=== PATIENT | male | born 1930 | race Caucasian/White ===

== ENCOUNTER 2017-09-15 11:23 | Emergency (ER) | payer MEDICARE ==
[~2017-09-15] VITALS: Ht 175.3 cm; Wt 80.0 kg
[~2017-09-15 11:23] MED LIST: ASPI81 PO; CARV3.125 PO; CLOP75 PO; HYDR-2768 PO; MOTR200T PO; NITR0.4S SL; OMEP20TA OR; PROS5TAB2 PO; SULF1TAB47 PO; TAB-TAB PO
[2017-09-15 11:24] VITALS: BP 201/77; PULSE 62; RESP 16; TEMP 98.2; O2SAT 98
[2017-09-15] MEDS ORDERED: CARV3.12 PO (11:34)
[2017-09-15] MEDS ORDERED: FINA5TAB2 PO (11:34)
[2017-09-15] MEDS ORDERED: OMEP20TA93 PO (11:34)
[2017-09-15] MEDS ORDERED: ASPI81CH6 CHEW (11:34)
[2017-09-15] MEDS ORDERED: CHOL1TAB29 PO (11:34)
[2017-09-15] MEDS ORDERED: IBUP200T47 PO (11:34)
[2017-09-15] MEDS ORDERED: MULTTAB67 PO (11:34)
[2017-09-15] MEDS ORDERED: LISI10TA3 PO (11:34)
[2017-09-15] MEDS ORDERED: ATOR20TA15 PO (11:34)
--- NOTE | 2017-09-15 12:23 | RADRPT ---
EXAM DATE/TIME: 09/15/2017 12:01 [place] COMPARISON: No previous studies available for comparison. INDICATIONS : Abdomen pain MEDICAL HISTORY : Constipation SURGICAL HISTORY : Appendectomy. Inguinal hernia repair. ENCOUNTER: Initial ACUITY: 2 days PAIN SCORE: 8/10 LOCATION: Abdomen FINDINGS: A single erect view of the abdomen demonstrates the lower lungs to be clear. No evidence of free int raperitoneal gas. The visualized bowel loops are unremarkable. CONCLUSION: Normal examination. Mild rightward lumbar scoliosis Jose Vaughn MD on September 15, 2017 at 12:20 Board Certified Radiologist. This report was verified electronically.
--- NOTE | 2017-09-15 12:26 | PD ---
HPI Chief Complaint: GI Complaint Time Seen by Provider: 11:53 Travel History International Travel<30 days: No Contact w/Intl Traveler<30days: No Traveled to known affect area: No History of Present Illness HPI 86-year-old male presents to the ED for evaluation 3 day history of constipation , rectal pain. He states that he is taking stool softeners and now has "anal leakage." He denies fevers, chills, nausea, vomiting, abdominal pain, hematochezia, melena, BRBPR. He states that he takes a stool softener daily. He denies previous problem like this before. PFSH Past Medical History Asthma: No Blood Disorders: No Heart Rhythm Problems: No Cancer: No Cardiovascular Problems: Yes High Cholesterol: Yes Chemotherapy: No Chest Pain: Yes Congestive Heart Failure: No COPD: No Diabetes: No Endocrine: No Glaucoma: No Genitourinary: Yes Hepatitis: No Hiatal Hernia: No Hypertension: No Immune Disorder: No Medical other: Yes (hx of prostate disease) Musculoskeletal: Yes Neurologic: No Psychiatric: No Reproductive: No Respiratory: No Radiation Therapy: No Sleep Apnea: No Thyroid Disease: No Influenza Vaccination: Yes Past Surgical History Abdominal Surgery: Yes (x3 hernia repair,appendectomy) Appendectomy: Yes Coronary Stent: Yes Eye Surgery: Yes (left eye cataract removal) Genitourinary Surgery: Yes (turp) Pacemaker: No Tonsillectomy: Yes Social History Alcohol Use: No Tobacco Use: No Substance Use: No Allergies-Medications (Allergen,Severity, Reaction): Coded Allergies: No Known Allergies (Verified Adverse Reaction, Unknown, 09/15/17) Reported Meds & Prescriptions Reported Meds & Active Scripts Active Golytely 236 gm (Polyethylene Glycol/Electrolytes) 4,000 Ml Soln 4,000 Ml PO ONCE Drink 1 ounce of GoLYTELY every 10-15 minutes until a stool is produced. STOP taking GoLYTELY once the stool is produced. Reported Ibuprofen 200 Mg Tab 200 Mg PO HS Lisinopril 10 Mg Tab 10 Mg PO DAILY Finasteride 5 Mg Tab 5 Mg PO DAILY Do not crush. Atorvastatin (Atorvastatin Calcium) 20 Mg Tab 20 Mg PO HS Vitamin D3 Super Strength (Cholecalciferol) 2,000 Unit Tab 2,000 Units PO DAILY Multiple Vitamin 1 Tab 1 Tab PO DAILY Omeprazole 20 Mg Tab 20 Mg PO DAILY Aspirin Low Dose (Aspirin) 81 Mg Chew 81 Mg CHEW DAILY Carvedilol 3.125 Mg Tab 3.125 Mg PO BID Review of Systems Except as stated in HPI: all other systems reviewed are Neg Physical Exam Narrative GENERAL: Well-nourished, well-developed, ill-appearing white male, pacing the room in no acute distress. SKIN: Focused skin assessment warm/dry. HEAD: Normocephalic. EYES: No scleral icterus. No injection or drainage. NECK: Supple, trachea midline. No JVD or lymphadenopathy. CARDIOVASCULAR: Regular rate and rhythm without murmurs, gallops, or rubs. RESPIRATORY: Breath sounds equal bilaterally. No accessory muscle use. GASTROINTESTINAL: Abdomen soft, non-tender, nondistended. Active bowel sounds. RECTAL EXAM: No masses or tenderness, stool is brown. Hard stool ball in the rectal vault. Guaiac negative. MUSCULOSKELETAL: No cyanosis, or edema. BACK: Nontender without obvious deformity. No CVA tenderness. Data Data Last Documented VS Vital Signs Date Time Temp Pulse Resp B/P (MAP) Pulse Ox O2 Delivery O2 Flow Rate FiO2 09/15/17 13:10 09/15/17 11:24 98.2 62 16 98 Orders Orders Abdomen, Upright Only (09/15/17 11:53) Ed Discharge Order (09/15/17 12:29) MDM Medical Decision Making Medical Screen Exam Complete: Yes Emergency Medical Condition: Yes Differential Diagnosis Constipation versus fecal impaction versus hemorrhoids versus prolapse versus other Narrative Course 86-year-old male presents to the ED for evaluation 3 day history of constipation , rectal pain. He states that he is taking stool softeners and now has "anal leakage." He denies fevers, chills, nausea, vomiting, abdominal pain, hematochezia, melena, BRBPR. Vitals reviewed. Abdominal exam completely benign. Patient has a large stool ball in the rectal vault. This was digitally disimpacted. Patient reports improvement of his rectal pain immediately after procedure. He is prescribed GoLYTELY, a few ounces every 10- 15 minutes until a bowel movement is produced, stopp taking after bowel movement is produced, follow up with the primary care provider. He indicated understanding of the instructions. He is agreeable with care plan. He is stable and discharged home. Diagnosis Primary Impression: Fecal impaction in rectum Referrals: Primary Care Physician Patient Instructions: Fecal Impaction (ED), General Instructions Additional Instructions: Rest, hydrate. Take GoLYTELY as prescribed until a stool is produced. Follow-up with your primary care provider. Return to the ED for any urgent or emergent medical condition. Med/Other Pt SpecificInfo: Prescription(s) given Scripts Peg-Electrolytes (Golytely 236 gm) 4,000 Ml Soln 4000 ML PO ONCE for Bowel Cleanser, #1 CONTAINER 0 Refills Drink 1 ounce of GoLYTELY every 10-15 minutes until a stool is produced. STOP taking GoLYTELY once the stool is produced. Prov: Rivas Gale MD 09/15/17 Disposition: 01 DISCHARGE HOME Condition: Stable Brittney Holliday Sep 15, 2017 12:26
[2017-09-15] MEDS ORDERED: COLY4000S PO (12:27)
== END 2017-09-15 13:40 | disposition home or self-care (01) ==
LOC: NEPD 11:23
DX: K56.41 Fecal impaction (principal); E78.00 Pure hypercholesterolemia, unspecified; M41.9 Scoliosis, unspecified; Z79.82 Long term (current) use of aspirin; Z79.899 Other long term (current) drug therapy
CPT/HCPCS: 74000; 99284

== ENCOUNTER 2018-05-16 09:31 | Observation (INO) ==
--- NOTE | 2018-05-16 10:12 | XR ---
EXAM DATE: 05/16/2018 10:03 AM EDT AGE/SEX: 87 years / Male INDICATIONS: Chest pain. Patient states he has chest pressure. CLINICAL DATA: This is the patient's initial encounter. Patient reports that signs and symptoms have been present for 2 days and indicates a pain score of 0/10. MEDICAL/SURGICAL HISTORY: None. . Appendectomy. Inguinal hernia repair. COMPARISON: [facility] – [place], CHEST SINGLE AP, 12/29/2010. . FINDINGS: The examination demonstrates mild dilation of the aortic root similar to previous dated 12/29/2010. The lungs are clear. There are postsurgical changes within the left shoulder. There are degenerative changes within the sh oulders bilaterally. The bony structures are otherwise intact. CONCLUSION: Mild dilation of the ascending aorta similar to previous dated 12/29/2010. The lungs are clear. Electronically signed by: Terell Kilpatrick MD 05/16/2018 10:10 AM EDT
[2018-05-16 10:15] LABS: Baso % (Auto) 0.5 % (0.0-2.0); Eos # (Auto) 0.2 th/mm3 (0.0-0.4); Eos % (Auto) 3.6 % (0.0-4.0); Hematocrit 43.2 % (39.0-51.0); Hemoglobin 14.4 gm/dL (13.0-17.0); Lymph # (Auto) 1.5 th/mm3 (1.0-4.8); Lymph % (Auto) 23.6 % (9.0-44.0); Mean Corpuscular HGB Conc 33.3 % (32.0-36.0); Mean Corpuscular Hemoglobin 31.6 pg (27.0-34.0); Mean Corpuscular Volume 95.1 fL (80.0-100.0); Mean Platelet Volume 7.5 fL (7.0-11.0); Mono # (Auto) 0.9 th/mm3 (0.0-0.9); Mono % (Auto) 14.6 % (0.0-8.0); Neut # (Auto) 3.7 th/mm3 (1.8-7.7); Neut % (Auto) 57.7 % (16.0-70.0); Platelet Count 231 th/mm3 (150-450); Red Blood Count 4.55 mil/mm3 (4.50-5.90); Red Cell Distribution Width 12.8 % (11.6-17.2); White Blood Count 6.5 th/mm3 (4.0-11.0)
[2018-05-16 10:36] LABS: Anion Gap 4 meq/L (5-15); Blood Urea Nitrogen 25 mg/dL (7-18); Calcium 8.8 mg/dL (8.5-10.1); Carbon Dioxide 32.1 meq/L (21.0-32.0); Chloride 106 meq/L (98-107); Glomerular Filtration Rate 82 mL/min (>89); Glucose,Random 68 mg/dL (74-106); Potassium 4.5 meq/L (3.5-5.1); Sodium 142 meq/L (136-145)
[2018-05-16 10:37] LABS: Activated Partial Thrombo Time 25.1 sec (24.3-30.1); Prothrombin Time 10.5 sec (9.8-11.6)
[2018-05-16 10:40] LABS: Creatine Kinase 158 U/L (39-308)
[2018-05-16] MEDS ORDERED: Iohexol 350 MG/ML 50 ML Vial (for Cath Lab) IVCONTRAST ONE (13:16)
[2018-05-16] MEDS ORDERED: Iohexol 350 MG/ML 100 ML Vial (for Cath Lab) IVCONTRAST ONE (13:16)
[2018-05-16] MEDS ORDERED: Hypromellose 0.3% Opth Gel 10 GM Bottle EACH EYE PRN (14:50)
--- NOTE | 2018-05-16 15:06 | P.HPCA ---
History of Present Illness Service: Chest pain center Primary Care Physician: Omer Linn Chief Complaint: Chest pressure History of Present Illness: Very pleasant 87-year-old gentleman with a known history of coronary artery disease presents with chest pressure. In 2010 he had an episode of chest pain that led to catheterization which demonstrated a high-grade lesion in the LAD which was successfully stented by Dr. Madhavi Dee. At that time he had additional documented disease in the circumflex and the right coronary artery but these have been followed and treated medically. He has been followed by Dr. Qureshi [facility] and has had both nuclear and exercise stress test but none within the last year or so. 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 He is otherwise remarkably healthy and states that his blood pressure has been in good control. About 3 weeks ago after a in the family he experienced an episode of chest pressure which was midsternal about about 3 out of 10 lasting less than 5 minutes and relieved by 3 aspirin. This morning he awoke at about 3 AM with similar discomfort which was again relieved by 3 aspirin. He contacted his primary care physician who directed him to the emergency room. He states that this discomfort was very similar in character to the discomfort he had prior to his stent but not quite as severe. This was highly suggestive of recurrent nocturnal unstable angina. Review of Systems Review of systems is entirely unremarkable other than that presented the history and physical PMFSH - History History Provided By: Patient (Patient has) - Medical History Medical History: Medical History (Last Updated 05/16/18 @ 15:03 by Artemio Francis MD) Rotator cuff impingement syndrome of right shoulder (Acute) Rotator cuff impingement syndrome of left shoulder (Acute) GERD (gastroesophageal reflux disease) (Acute) BPH (benign prostatic hyperplasia) (Acute) Hypercholesteremia (Acute) Hypertension (Acute) - Surgical History Surgical History: Surgical History (Last Updated 05/16/18 @ 15:03 by Artemio Francis MD) H/O heart artery stent (Acute) History of cardiac catheterization (Acute) History of appendectomy (Acute) H/O hernia repair (Acute) - Tobacco History Second Hand Smoke Exposure: No Tobacco Use In Past 30 Days: No Smoking Status: Former smoker Tobacco Type: Cigarettes - Alcohol History How Often Do You Have a Drink Containing Alcohol: Never - Substance Use History Substance History: No History of Abuse - Travel History Recent Travel in the [place] Within the Last 8 Weeks: No Recent Travel Out of the Country Within the Last 8 Weeks: No - Immunization History Tetanus Immunization: Unsure Hx Influenza Vaccine This Season: Yes Medications and Allergies Active Medications: Active Medications Atorvastatin Calcium (Lipitor) 20 mg PO DAILY QUITA Carvedilol (Coreg) 3.125 mg PO BID QUITA Finasteride (Proscar) 5 mg PO DAILY QUITA Lisinopril (Prinivil) 10 mg PO DAILY QUITA Non-Formulary Medication (Dextran 70-Hypromellose [Artificial Tears (Pf)]) 1 drp EACH EYE BID PRN PRN Reason: Dry Eye(S) Non-Formulary Medication (Omeprazole [Omeprazole]) 20 mg PO DAILY QUITA Sodium Chloride (Ns Flush) 2 ml IV.FLUSH UNSCH PRN PRN Reason: FLUSH AFTER USING IV ACCESS Sodium Chloride (Ns Flush) 2 ml IV.FLUSH BID QUITA Sodium Chloride (Ns Flush) 2 ml IV.FLUSH PRN PRN PRN Reason: FLUSH AFTER USING IV ACCESS Allergies Allergy/AdvReac Type Severity Reaction Status Date / Time No Known Allergies Allergy Unverified 05/16/18 09:36 Home Medications Medication Instructions Recorded Confirmed Type aspirin 81 mg PO DAILY 05/16/18 05/16/18 History atorvastatin 20 mg PO DAILY 05/16/18 05/16/18 History carvedilol 3.125 mg PO BID 05/16/18 05/16/18 History cholecalciferol (vitamin D3) 2,000 unit PO DAILY 05/16/18 05/16/18 History [Vitamin D3] dextran 70-hypromellose 1 drp OPHTHALMIC (EYE) BID PRN 05/16/18 05/16/18 History [Artificial Tears (PF)] finasteride 5 mg PO DAILY 05/16/18 05/16/18 History lisinopril 10 mg PO DAILY 05/16/18 05/16/18 History omeprazole 20 mg PO DAILY 05/16/18 05/16/18 History Exam Vital signs: Vital Signs 05/16/18 09:33 05/16/18 09:43 05/16/18 09:48 Temperature 97.7 F Pulse Rate 56 L 60 53 L Respiratory Rate 16 18 18 Blood Pressure 184/77 H 202/81 H 202/81 H Pulse Oximetry 97 96 98 05/16/18 12:37 Temperature Pulse Rate 56 L Respiratory Rate 18 Blood Pressure 167/77 H Pulse Oximetry 98 Intake & Output 05/15/18 05/16/18 05/16/18 18:59 06:59 18:59 Weight 78.018 kg Narrative: Well-nourished well-developed male appearing less than stated 87 years Head normocephalic atraumatic Ears bilateral hearing aids Eyes PERRLA EOMI bilateral intraocular lenses sclera clear Mouth mucous membranes moist and well papillated partial plates in place no lesions Neck supple no JVD masses nodes or bruits Chest is clear to auscultation with no rales wheezes or rhonchi Cardiovascular regular sinus rhythm no gallops rubs or murmurs Abdomen soft nontender no guarding or rebound no hepatosplenomegaly Well-healed inguinal scars Extremities trace of edema but no clubbing or cyanosis. Well-healed scars left and right shoulder Neurologic cranial nerves are intact motor is 4+ to all extremities Results 05/17/18 06:06 05/17/18 06:06 Cardiac Enzymes 05/16/18 Range/Units 09:15 CK-MB (CK-2) 4.0 H (0.5-3.6) ng/mL Troponin I Less than 0.02 L (0.02-0.05) ng/mL Coagulation 05/16/18 Range/Units 09:15 PT 10.5 (9.8-11.6) sec APTT 25.1 (24.3-30.1) sec CBC 05/16/18 Range/Units 09:15 WBC 6.5 (4.0-11.0) th/mm3 RBC 4.55 (4.50-5.90) mil/mm3 Hgb 14.4 (13.0-17.0) gm/dL Hct 43.2 (39.0-51.0) % Plt Count 231 (150-450) th/mm3 Neut # (Auto) 3.7 (1.8-7.7) th/mm3 Lymph # (Auto) 1.5 (1.0-4.8) th/mm3 [place] # (Auto) 0.9 (0.0-0.9) th/mm3 Eos # (Auto) 0.2 (0.0-0.4) th/mm3 Baso # (Auto) 0.0 (0.0-0.2) th/mm3 Comprehensive Metabolic Panel 05/16/18 Range/Units 09:15 Sodium 142 (136-145) meq/L Potassium 4.5 (3.5-5.1) meq/L Chloride 106 (98-107) meq/L Carbon Dioxide 32.1 H (21.0-32.0) meq/L BUN 25 H (7-18) mg/dL Creatinine 0.88 (0.60-1.30) mg/dL Calcium 8.8 (8.5-10.1) mg/dL Intake and Output 05/15/18 05/16/18 05/16/18 22:59 06:59 14:59 Other: Weight 78.018 kg Patient Weight 05/17/18 06:59 Weight 78.018 kg Caprini VTE Risk Assessment Caprini VTE Risk Assessment: No/Low Risk (score <= 1) Caprini Risk Assessment Model: Point Value = 1 Point Value = 2 Point Value = 3 Point Value = 5 Age 41-60 Minor surgery BMI > 25 kg/m2 Swollen legs Varicose veins or History of unexplained or recurrent spontaneous Oral contraceptives or hormone replacement Sepsis (< 1 month) Serious lung disease, including pneumonia (< 1 month) Abnormal pulmonary function Acute myocardial infarction Congestive heart failure (< 1 month) History of inflammatory bowel disease Medical patient at bed rest Age 61-74 Arthroscopic surgery Major open surgery (> 45 min) Laparoscopic surgery (> 45 min) Malignancy Confined to bed (> 72 hours) Immobilizing plaster cast Central venous access Age >= 75 History of VTE Family history of VTE Factor V Leiden Prothrombin [id number] Lupus anticoagulant Anticardiolipin antibodies Elevated serum homocysteine Heparin-induced thrombocytopenia Other congenital or acquired thrombophilia Stroke (< 1 month) Elective arthroplasty Hip, pelvis, or leg fracture Acute spinal cord injury (< 1 month) Prophylaxis Regimen: Total Risk Factor Score Risk Level Prophylaxis Regimen 0-1 Low Early ambulation 2 Moderate Order ONE of the following: *Sequential Compression Device (SCD) *Heparin 5000 units SQ BID 3-4 Higher Order ONE of the following medications: *Heparin 5000 units SQ TID *Enoxaparin/Lovenox 40 mg SQ daily (WT < 150 kg, CrCl > 30 mL/min) *Enoxaparin/Lovenox 30 mg SQ daily (WT < 150 kg, CrCl > 10-29 mL/min) *Enoxaparin/Lovenox 30 mg SQ BID (WT < 150 kg, CrCl > 30 mL/min) AND/OR *Sequential Compression Device (SCD) 5 or more Highest Order ONE of the following medications: *Heparin 5000 units SQ TID (Preferred with Epidurals) *Enoxaparin/Lovenox 40 mg SQ daily (WT < 150 kg, CrCl > 30 mL/min) *Enoxaparin/Lovenox 30 mg SQ daily (WT < 150 kg, CrCl > 10-29 mL/min) *Enoxaparin/Lovenox 30 mg SQ BID (WT < 150 kg, CrCl > 30 mL/min) AND *Sequential Compression Device (SCD) Assessment and Plan - Plan Patient has known coronary artery disease and recurrent symptoms suggesting the same pattern that he experienced with previous. Discussion was carried out with Dr. garduno who is on-call for [facility] and with consensus we felt it most appropriate to move the patient directly for catheterization. Dr. garduno will see the patient while he is in the emergency room patient will be admitted to Dr. Mi pending cath documented ischemia - Attending Attestation I attest to the need for the evaluation and diagnostic testing obtained into the need for admission of the patient for further catheterization
[2018-05-16] MEDS ORDERED: Heparin 10,000 UNITS/10 ML Vial (for IV use) ONE (15:15)
[2018-05-16] MEDS ORDERED: Heparin/NS PF Inj 1,500 ML ONE (15:15)
[2018-05-16] MEDS ORDERED: fentaNYL Citrate Inj 100 MCG/2 ML Ampul ONE ×2 (15:32→16:54)
[2018-05-16 15:55] LABS: Creatine Kinase 157 U/L (39-308)
[2018-05-16] MEDS ORDERED: Nitroglycerin SL 400 MCG/ACT 4.9 GM Spray Bottle SL ONE (16:35)
--- NOTE | 2018-05-16 16:35 | MB ---
cc: Jose Schmidt MD DATE: 05/16/2018 INDICATION: Chest pain. HISTORY OF PRESENT ILLNESS: An 87-year-old gentleman with history of coronary artery disease with prior percutaneous intervention to the left anterior descending coronary artery, also has history of GERD, BPH, hyperlipidemia, and hypertension. He now presents with episodes of progressive exertional chest pain over the course of the last 3 weeks. He was initially going to be sent to the chest pain center with Dr. Francis, which documents suggestive symptoms for consideration of direct cardiac catheterization, given his unstable angina presentation. PAST MEDICAL HISTORY: GERD, BPH, hyperlipidemia, hypertension. SOCIAL HISTORY: Former tobacco user. Denies any drugs or alcohol. REVIEW OF SYSTEMS: A 12-point review of system was performed, and is negative unless otherwise noted in the history of present illness. MEDICATIONS: Atorvastatin, carvedilol, finasteride, lisinopril. FAMILY HISTORY: Denies any family history of early coronary disease, or sudden cardiac . PHYSICAL EXAMINATION: VITAL SIGNS: Pulse 58, blood pressure 131/63 mmHg. GENERAL: Alert and oriented x3, in no acute distress. HEENT: Shows pupils reactive to light and accommodation. Extraocular movements are intact. CARDIOVASCULAR: Regular rate and rhythm without murmurs, rubs, or gallops. ABDOMEN: Nontender, nondistended with good bowel sounds. No hepatosplenomegaly. EXTREMITIES: Show no clubbing, cyanosis or edema. Good peripheral pulses. NEUROLOGIC: Cranial nerves intact. Motor and sensory grossly intact. LABORATORY DATA: WBC 6.5, hemoglobin 14.4, platelet count is 231. INR is 1. Sodium 142, potassium 4.5, BUN 25, creatinine 0.88. Troponins negative x1. Electrocardiogram shows sinus rhythm. No ischemic changes. ASSESSMENT: 1. Unstable angina. 2. Hypertension. 3. Hyperlipidemia. 4. History of coronary artery disease. PLAN: The patient has rather suggestive exertional anginal symptoms with prior history of coronary artery disease consistent with acute coronary syndrome presentation. Discussed the case in detail with Dr. Francis, and we will plan to proceed directly with cardiac catheterization. The patient is currently n.p.o. and it is Saturday afternoon. Will see if we can coordinate this prior to the weekend. Will continue with guideline-directed medical therapy. Jsoe Schmidt MD NIALL/rh , 03:26 PM , 03:33 PM
[2018-05-16] MEDS ORDERED: Atropine Inj 1 MG/ML Vial IV.PUSH PRN (16:51)
[2018-05-16] MEDS ORDERED: Misc Info for Pharmacy OTHER STA (16:56)
--- NOTE | 2018-05-16 17:00 | CATHPROC ---
Patient Name: Chad Galloway Study #: [id number] Initial MD: Jose Schmidt Date of : 1930 Study Date: 05/16/2018 Cardiac Catheterization Report 05/16/2018 5:14:28 PM Financial #: [id number] 1 of 10 Patient Name: Chad Galloway Study #: [id number] Initial MD: Jose Schmidt Date of : 1930 Study Date: 8 Entire Case Report Patient Information Patient Name Chad Galloway Date of 1930 Age 87 years Financial # [id number] Gender M AlternateID Lab Number 5 Room Number E49A Height (in) 69.0 Height (cm) 175.3 BSA 1.94 Weight (lbs) 172.0 Weight (kg) 78.2 Patient Address/Phone Number Home Address [facility] Home Phone Number [phone] [phone] Study Information Study Number Admission Scheduled Start Study Start [id number] May 16 2018 2:05PM 05/16/2018 May 16 2018 3:12PM [place] Service Cardiac Catheterization Admit Source Facility Department Emergency department [facility] - Escalator Installer Physician and Clinical Staff Initial Jose Lorenzana Automation Operator Shravan Hope,RN Automation Operator Julio Powell,REZA Recorder Ilana Shahid,RT(R) ScrIrlanda Hinds RT(Rene) (BS) Procedures Performed Procedure Location (Site) Vessel Name Coronary Angiograms LCA Left Coronary Coronary Angiograms RCA Right Coronary Drug Eluting Inflatio RCA Mid Right Coronary IVUS RCA Right Coronary L Heart Cath Wire insertion Radial (right) Radial Art. 05/16/2018 5:14:28 PM Financial #: [id number] 2 of 10 Patient Name: Chad Galloway Study #: [id number] Initial MD: Jose Schmidt Date of : 1930 Study Date: 05/16/2018 Equipment Time Sanitary Engineer Description Size Mfg Part Number Used/Scraped TRANSDUCER, TRUWAVE [id number] 15:13 CARRILLO MAGALLON * Used W/STOCKCOCK *[id number] 16:13 [employer]ON SCIENT[employer] CATHETER, OPTICROSS IMAGING [id number] Used [id number] 16:13 [employer] WIRE, SAMURAI 190CM 190CM Used *[id number] *[id number] 15:13 [employer] Systems BLANKET,WARM AIR CCL * Used *[id number] 15:13 [employer] PACK, CCL CUSTOM * Used *[id number] 15:13 [employer] Systems SUPPORT, ARTERIAL ADULT 32811 *[id number] Used [id number] 15:21 MEDTRONIC JL 3.5 DXTERITY CATHETER FR 5 Used *[id number] 15:21 MEDTRONIC JR 5.0 DXTERITY CATHETER fr 5 [id number] Used [id number] 16:31 MEDTRONIC STENT, 3.0 30MM SAM 3.0 30MM Used *[id number] 16:30 Wordeo 30 RYANN INDEFLATOR Used *[id number] BAND, RADIAL COMPRESSION TR [id number] 16:36 [employer] MEDICAL 24CM Used SHORT 24 *[id number] SHEATH, FR6 RADIAL PRELUDE 15:13 Wordeo FR 6 [id number] Used EASE 11CM [id number] 15:13 [employer] WIRE, EXCHANGE 260CM 3MMJ 260CM Used *[id number] 15:13 NAMIC MANIFOLD, 4 PORT * Used *[id number] 15:13 NYCOMED OMNIPAQUE, 350 MG, 150ML 150ML [id number] Used Equipment Model, Serial, Lot Number and Expiration Data Description Model Number Serial Number Lot Number Expiration Date BAND, RADIAL COMPRESSION TR [id number] 01-27-2021 SHORT 24 JR 5.0 DXTERITY CATHETER [id number] 05-21-2020 STENT, 3.0 30MM SAM [id number] 12-17-2019 WIRE, SAMURAI 190CM [id number] 03-18-2020 Insurance Information Insurance Payor Medicare Third Republican Third Republican Number [facility] HMO [id number] 05/16/2018 5:14:28 PM Financial #: [id number] 3 of 10 Patient Name: Chad Galloway Study #: [id number] Initial MD: Jose Schmidt Date of : 1930 Study Date: 05/16/20 18 History: Current Medications Medication Dosage/Unit Route Frequency Last Date/Time Taken ASA Statins (any) CARVEDILOL LISINOPRIL History: Allergies Allergy Reaction No Known Allergies History: Risk Factors Family History of Hypertension Dyslipidemia Previous MD Previous Heart Failure Premature CAD Yes Yes Yes No No Prior Valve Prior PCI Prior PCIDate Prior CABG Surgery No Yes 09/30/2010 No Cerebrovascular Peripheral Artery Chronic Lung On Dialysis Diabetes Disease Disease Disease No No No No No History: Other Current Smoker Method Quit Packs a Day Years Used Pack Years No Cigarettes 60 Years Ago 1 10 10 Labs Hgb (g/dl) Hct (%) WBC (l/cumm) Platelets (thousands) 11.60-17.00 35.00-51.00 4.00-11.00 150.00-450.00 14.3 43.2 6.5 231 Glucose (mg/dl) BUN (mg/dl) Creatinine (mg/dl) BUN:Creatinine (1:x) 74.00-106.00 7.00-18.00 0.50-1.30 10.00-20.00 68 25 0.8 31.3 Na (meq/l) K (meq/l) 136.00-145.00 3.50-5.10 142 4.5 INR (PTT:PT) 0.90-1.10 1 Troponin I (ng/ml) CPK (u/l) CPK-MB (ng/ML) 0.02-0.05 26.00-308.00 0.50-3.60 0.02 158 4.0 05/16/2018 5:14:28 PM Financial #: [id number] 4 of 10 Patient Name: Chad Galloway Study #: [id number] Initial MD: Jose Schmidt Date of : 1930 Study Date: 05/16/2018 Medication Medication Total Dose (Bolus/Oral) Medication Total Dosage/Unit 1% XYLOCAINE 5 mL ANGIOMAX BOLUS 12 mL FENTANYL 100 mcg HEPARIN 6000 units NITROGLYCERIN S/L 1.2 mg NTG (IC) 200 mcg PLAVIX 600 mg VERSED 1 mg 05/16/2018 5:14:28 PM Financial #: [id number] 5 of 10 Patient Name: Chad Galloway Study #: [id number] Initial MD: Jose Schmidt Date of : 1930 Study Date: 2017 Medications (Bolus/Oral) Medication Time Given Dosage/Unit Administered By Reason VERSED 05/16/2018 3:56:29 PM 1 mg Herminia, Shravan 1 mg VERSED given in lab by Shravan Hope RN in Left Antecubital via Peripheral IV. Ordered by Jose Schmidt. FENTANYL 05/16/2018 3:57:38 PM 50 mcg Herminia, Shravan 50 mcg FENTANYL given in lab by Shravan Hope RN in Left Antecubital via Peripheral IV. Ordered by Jose Wen. 1% XYLOCAINE 05/16/2018 4:00:02 PM 5 mL Jose Schmidt 5 mL 1% XYLOCAINE given in lab by Jose Schmidt in Right Radial via Subcutaneous. NTG (IC) 05/16/2018 4:01:03 PM 200 mcg Jose Schmidt 200 mcg NTG (IC) given in lab by Jose Schmidt in Right Radial via Intra-arterial. HEPARIN 05/16/2018 4:01:38 PM 4000 units Irlanda Hamilton 4000 units HEPARIN given in lab by Irlanda Hamilton RT(R) (BS) in Left Antecubital via Peripheral IV . Ordered by Jose Schmidt. HEPARIN 05/16/2018 4:14:18 PM 2000 units Irlanda Hamilton 2000 units HEPARIN given in lab by Irlanda Hamilton RT(R) (BS) in Left Antecubital via Peripheral IV . Ordered by Jose Schmidt. ANGIOMAX BOLUS 05/16/2018 4:31:05 PM 12 mL Shravan Hope 12 mL ANGIOMAX BOLUS given in lab by Shravan Hope RN in Left Antecubital via Peripheral IV. Ordered by Jose Schmidt. NITROGLYCERIN S/L 05/16/2018 4:35:37 PM 0.4 mg Herminia, Shravan 0.4 mg NITROGLYCERIN S/L given in lab by Shravan Hope RN via Sublingual. Ordered by Jose Schmidt. NITROGLYCERIN S/L 05/16/2018 4:45:00 PM 0.4 mg hSravan Hope As per physician s verbal order 0.4 mg NITROGLYCERIN S/L given in lab by Shravan Hope RN via Sublingual. Ordered by Jose Schmidt. Reason: As per physicians verbal order. PLAVIX 05/16/2018 4:50:41 PM 600 mg Shravan Hope 600 mg PLAVIX given in lab by Shravan Hope RN via Oral. Ordered by Jose Schmidt. NITROGLYCERIN S/L 05/16/2018 4:55:00 PM 0.4 mg Shravan Hope As per physician s verbal order 0.4 mg NITROGLYCERIN S/L given in lab by Shravan Hope RN via Sublingual. Ordered by Jose Schmidt. Reason: As per physicians verbal order. FENTANYL 05/16/2018 4:55:44 PM 50 mcg Shravan Hope 50 mcg FENTANYL given in lab by Shravan Hope RN in Left Antecubital via Peripheral IV. Ordered by Jose Wen. Medication (Drip) Medication Time Given Dosage/Unit Concentration/Unit Diluent (ml) Soluti on ANGIOMAX DRIP 05/16/2018 4:33:16 PM 1.79 mg/kg/hr 250 mg 50 NaCl .9 1.79 mg/kg/hr ANGIOMAX DRIP given in lab by Shravan Hope RN in Left Antecubital via Peripheral IV. P ump/Drip Flow = 28 ml/hr using NaCl .9 with a concentration of 250 mg in 50 ml. Ordered by Jose Schmidt. IV Solutions 05/16/2018 3:35:20 PM 50 mL (IV) NaCl .9 IV Solutions given in lab by Julio Powell RN in Left Antecubital via Peripheral IV. Pump/Drip Flow using NaCl .9. 05/16/2018 5:14:28 PM Financial #: [id number] 6 of 10 Patient Name: Chad Galloway Study #: [id number] Initial MD: Jose Schmidt Date of : 1930 Study Date: 8 Vitals Summary Pain Time HR NIBP SpO2 Resp Temp EtCO2 Apnea Luis Bobby Comment Level 15:38:32 59 202/91 98.0 15:39:31 58 121/101 99.0 15:50:37 56 201/94 97.0 15:53:35 57 206/88 98.0 15:58:48 56 175/76 100.0 16:02:46 62 145/75 93.0 16:07:45 68 137/71 92.0 10 0 2 16:12:42 67 149/77 96.0 16:17:49 60 154/67 91.0 16:22:48 52 161/73 95.0 16:27:51 53 155/72 91.0 16:33:31 56 189/88 94.0 16:37:55 54 196/80 97.0 16:42:59 56 181/82 97.0 16:47:47 56 158/85 96.0 16:53:42 56 185/80 97.0 Luis Score Summary Time Activity Resp Circ LOC Color Total Score 16:07:45 2 2 2 2 2 10 Luis Score Definition Table Activity - 0 Activity - 1 Activity - 2 No Movement to Command Weak Hand Grasp Lift Head, Good Hand Grasp Respiration - 0 Respiration - 1 Respiration - 2 Apneic or Obstructed Shallow Breath, Airway Adjunct Deep Breath, Cough Freely Circulation - 0 Circulation - 1 Circulation - 2 B/P > 50% Admission B/P B/P > 20-50% Admission B/P B/P Stable X3 Level of Consciousness - 0 Level of Consciousness - 1 Level of Consciousness - 2 Not Responding Arousable On Calling Awake and Aware Color - 0 Color- 1 Color - 2 Cyanotic Lips, Nailbed, Skin Pale, Dusky [place] Or Normal Chronological Log Time Study Chronological Log 15:31:03 Patient arrived via Bed. 15:31:03 Patient Name, D.O.B, / Armband Verified By R.NBg 05/16/2018 5:14:28 PM Financial #: [id number] Patient Name: Chad Galloway Study #: [id number] Initial MD: Jose Schmidt Date of : 1930 Study Date: 05/16/2018 15:31:04 Consent signed by the physician and the patient and verified by the Escalator Installer staff. 15:31:32 Allens test performed on the right radial and ulnar artery. 15:31:35 Patient has been NPO for More than 6Hrs. 15:31:36 Skin Breakdown- none per pt 15::39 Patient Warmer Placed on the Table. 15::40 Adams Prominences Protected 15::40 A # 18 IV was noted in the Wrist (right). Grade = 0 15:31:59 History and physical on the chart or being dictated. 15:34:51 A # 20 IV was noted in the Antecubital (left). Grade = 0. Placed in lab by Zo Bermudez RN 15:35:20 IV Solutions given in lab by Julio Powell RN in Left Antecubital via Peripheral IV. Pump /Drip Flow using NaCl .9. 15:38:03 Reference ECG taken 15:38:32 HR=59 bpm, BJJL=467/91 mmhg, SpO2=98.0 % Vitals capture started with the following parameters, Patient=Adult, Interval=5 min, Initial Pr lzblvm=445 mmHg, 15:39:08 Deflation Rate=5 mmHg, Cuff placed on Left Leg 15:39:31 HR=58 bpm, JPRE=596/101 mmhg, SpO2=99.0 % 15:43:24 Right Radial and groin(s) prepped with 2% chlorhexidine, and draped after a 3 min. waiting time. 15::39 MD paged 15:43:56 MD responded Vitals capture started with the following parameters, Patient=Adult, Interval=5 min, Initial Pr fldlml=743 mmHg, 15:47:51 Deflation Rate=5 mmHg, Cuff placed on Left Arm 15:47:59 Pressure channel 1 zeroed. Time Out. Correct patient, correct procedure, correct physician, labs, allergies, and equipment verified with laborer cheesemaking 15:48:34 team present. Fire risk assesment completed (see hard stop sheet for coding). Time Out Conc urred by MD and individual staff in procedure. 15:50:37 HR=56 bpm, NAYH=381/94 mmhg, SpO2=97.0 % 15:51:45 Vitals capture stopped. Vitals capture started with the following parameters, Patient=Adult, Interval=5 min, Initial Pr omsnck=965 mmHg, 15:52:00 Deflation Rate=5 mmHg, Cuff placed on Left Arm 15:53:35 HR=57 bpm, XCAS=230/88 mmhg, SpO2=98.0 % 15:56:29 1 mg VERSED given in lab by Shravan Hope RN in Left Antecubital via Peripheral IV. Ordered by Jose Schmidt. 15:57:38 50 mcg FENTANYL given in lab by Shravan Hope RN in Left Antecubital via Peripheral IV. Ord ered by Jose Schmidt. 15:58:48 HR=56 bpm, MVMH=793/76 mmhg, CwS8=153.0 % 16:00:00 Case Start 16:00:02 5 mL 1% XYLOCAINE given in lab by Jose Schmidt in Right Radial via Subcutaneous. 16:00:45 Access site was Right Radial Artery . A SHEATH, FR6 RADIAL PRELUDE EASE 11CM FR 6 was advanced into the Radial (right) using the Perc utaneous 16::52 technique. 16:01:03 200 mcg NTG (IC) given in lab by Jose Schmidt in Right Radial via Intra-arterial. 4000 units HEPARIN given in lab by Irlanda Hamilton RT(Rene) (BS) in Left Antecubital via Periphe ral IV. Ordered by 16:01:38 Jose Schmidt. A JR 5.0 DXTERITY CATHETER fr 5 was advanced over a wire. OMNIPAQUE, 350 MG, 150ML 150ML was us ed for ::52 injections. 05/16/2018 5:14:28 PM Financial #: [id number] 8 of 10 Patient Name: Chad Galloway Study #: [id number] Initial MD: Jose Schmidt Date of : 1930 Study Date: 05/16/2018 16:02:46 HR=62 bpm, QXNN=389/75 mmhg, SpO2=93.0 % Recorded Pressure: Ao, HR=63, Condition=Condition 1 16:03:17 (Aorta) Ao 133/65/94 16:04:36 The RCA was injected and visualized at various angles. OMNIPAQUE, 350 MG, 150ML 150ML used . After removing the current catheter a JL 3.5 DXTERITY CATHETER FR 5 was advanced over a WIRE, E XCHANGE 260CM 16:05:41 3MMJ 260CM. 16:07:02 The LCA was injected and visualized at various angles. OMNIPAQUE, 350 MG, 150ML 150ML used . 16:07:45 HR=68 bpm, IELW=627/71 mmhg, SpO2=92.0 %, Pain=0, Luis=10, Bobby=2 16:12:42 HR=67 bpm, NCGX=893/77 mmhg, SpO2=96.0 % After removing the current catheter a XBRCA .070 GUIDE CATHETER FR 6 was advanced over a WIRE, EXCHANGE 16:12:55 260CM 3MMJ 260CM. 2000 units HEPARIN given in lab by Irlanda Hamilton, RT(R) (BS) in Left Antecubital via Periphe ral IV. Ordered by 16:14:18 Jose Schmidt. 16:14:58 A WIRE, SAMURAI 190CM 190CM was inserted via Radial (right). 16:17:49 HR=60 bpm, HEVZ=467/67 mmhg, SpO2=91.0 % 16:20:48 An CATHETER, OPTICROSS IMAGING was advanced through the lesion. Images saved onto IVUS hard drive 16:22:33 IVUS in progress using CATHETER, OPTICROSS IMAGING Mean Luminal Area measured 3.29 16:22:48 HR=52 bpm, SCQF=982/73 mmhg, SpO2=95 % 16:24:18 IVUS catheter removed 16:27:51 HR=53 bpm, TKDK=402/72 mmhg, SpO2=91.0 % 12 mL ANGIOMAX BOLUS given in lab by Shravan Hope RN in Left Antecubital via Peripheral IV. Or dered by Brayan, 16:31:05 Jose. A STENT, 3.0 30MM SAM 3.0 30MM was advanced through a XBRCA .070 GUIDE CATHETER FR 6 over a WI RE, 16:32:11 SAMURAI 190CM 190CM. A STENT, 3.0 30MM SAM 3.0 30MM was deployed using a 30 RYANN INDEFLATOR at 16 atmospheres for 15 seconds in 16:32:18 the RCA Mid. 1.79 mg/kg/hr ANGIOMAX DRIP given in lab by Shravan Hope RN in Left Antecubital via Peripheral IV. Pump/Drip Flow 16:33:16 = 28 ml/hr using NaCl .9 with a concentration of 250 mg in 50 ml. Ordered by Jose Schmidt. 16:33:31 HR=56 bpm, RYXL=511/88 mmhg, SpO2=94.0 % 16:34:08 Delivery device removed 16:34:34 Wire removed 16:34:36 Catheter was removed 16:34:51 Case End (Physician broke scrub) 16:35:37 0.4 mg NITROGLYCERIN S/L given in lab by Shravan Hope RN via Sublingual. Ordered by Jose Schmidt. 16:37:55 HR=54 bpm, IDQD=456/80 mmhg, SpO2=97.0 % 16:42:59 HR=56 bpm, BZRS=687/82 mmhg, SpO2=97.0 % Radial Compression Device Used. 12 mLs of air placed in BAND, RADIAL COMPRESSION TR SHORT 24 24 CM. Affected 16:43:14 hand 95 % O2 saturation. 16:43:46 No case complications noted. 16:43:47 Cine recording checked. 16:43:51 Bedside Report will be given. 16:43:51 Implantable Device card placed in patient's chart. 16:43:52 Report called to floor. 05/16/2018 5:14:28 PM Financial #: [id number] Patient Name: Chad Galloway Study #: [id number] Initial MD: Jose Schmidt Date of : 1930 Study Date: 05/16/2018 16:44:13 A Left Heart Cath was performed. 0.4 mg NITROGLYCERIN S/L given in lab by Shravan Hope RN via Sublingual. Ordered by St rubina Schmidt. Reason: As 16:45:00 per physicians verbal order. 16:47:47 HR=56 bpm, LKDP=047/85 mmhg, SpO2=96.0 % 16:50:41 600 mg PLAVIX given in lab by Shravan Hope RN via Oral. Ordered by Jose Schmidt. 16:50:50 Patient moved to stretcher 16:53:42 HR=56 bpm, OUGT=355/80 mmhg, SpO2=97.0 % 0.4 mg NITROGLYCERIN S/L given in lab by Shravan Hope RN via Sublingual. Ordered by St rubina Schmidt. Reason: As 16:55:00 per physicians verbal order. 16:55:44 50 mcg FENTANYL given in lab by Shravan Hope RN in Left Antecubital via Peripheral IV. Or dered by Jose Schmidt. 16:57:26 Vitals capture stopped. Recorded Pressures: Condition 1 Time Chamber Pressure Manual Override (*) 16:03:17 Ao 133/65/94 s/d/m Oxygen Values/Cardiac Output/Resistances: Condition 1 Oxygen Values O2 Consumption O2 Capacity 242.5 + 194.5 * = Manually Altered + = O2 Consumption is calculated using the formula 125 x BSA and should be considered a rough estimat e. End Study - Contrast Media Used In Study Contrast Total Opened (mL) Total Used (mL) Total Wasted (mL) Omnipaque 150 125 25 End Study - Maximum Contrast Load Max Contrast Load (mL) 488.6 End Study - Radiation Exposure Fluoro Time (minutes) 6.0 End Study - Patient Disposition Complications Transferred To Interventional Outcome No Telemetry Bed successful 05/16/2018 5:14:28 PM Financial #: [id number]
[2018-05-16] MEDS ORDERED: Temazepam 15 MG Capsule PO PRN (18:00)
[2018-05-16] MEDS ORDERED: Sodium Chlor 0.9% Inj 250 ML IV.SIG ONE (18:00)
--- NOTE | 2018-05-16 18:26 | MA ---
cc: Jose Schmidt MD DATE: 05/16/2018 INDICATION: Unstable angina. PROCEDURES PERFORMED: 1. Fluoroscopy with interpretation. 2. Coronary angiography. 3. Intravascular ultrasound of the right coronary artery. 4. Percutaneous coronary intervention with drug-eluting stent to the mid right coronary artery. METHOD: Risks, benefits and alternatives were discussed with the patient. The patient understood and consented to the procedure. The patient was brought into the catheterization lab, placed on the catheterization table. The right wrist was prepped and draped in sterile fashion. The right wrist was anesthetized with 2% lidocaine. The right radial artery was cannulated and a 6-Qatari 7 cm sheath was placed without difficulty. CORONARY ANGIOGRAPHY: 1. Left main coronary artery is widely patent. 2. Left anterior descending coronary has minor luminal irregularities. 3. Left circumflex has minor luminal irregularities. 4. Right coronary tortuous and has moderate calcium present to the proximal mid course. There are several areas of what appeared to be moderate stenosis and a hazy appearance, possibly consistent with unstable plaque. Distal posterior descending branch has mild luminal irregularities. It is a dominant vessel. INTRAVASCULAR ULTRASOUND: Intravascular ultrasound was performed of the right coronary artery, which did reveal greater than 75% stenosis in the mid segment of the right coronary artery with heavy eccentric calcium. PERCUTANEOUS CORONARY INTERVENTION: The coronary is selectively engaged with a 6-Qatari XP RCA guide catheter, a 0.014 inch Samurai wire was advanced down to the distal portion of the descending branch. A 3.0 x 30 mm RX Resolute drug-eluting stent was then deployed in the mid right coronary artery. Repeat angiography showed no residual stenosis, JESSIE 3 flow. CONCLUSIONS: 1. Severe mid right coronary stenosis. 2. Successful intravascular ultrasound followed by percutaneous coronary intervention with drug-eluting stent to the mid right coronary artery. PLAN: The patient will be monitored closely for any post-procedural complications. Hopefully, this will translate well to symptomatic improvement. We will anticipate possible discharge tomorrow morning. MD NIALL [place]/ct/ll , 05:02 PM , 05:10 PM
[2018-05-16 22:02] LABS: Creatine Kinase 105 U/L (39-308)
[2018-05-17 06:50] LABS: Anion Gap 9 meq/L (5-15); Blood Urea Nitrogen 18 mg/dL (7-18); Calcium 8.3 mg/dL (8.5-10.1); Carbon Dioxide 25.8 meq/L (21.0-32.0); Chloride 106 meq/L (98-107); Glomerular Filtration Rate Greater Than 89 mL/min (>89); Glucose,Random 90 mg/dL (74-106); Potassium 4.1 meq/L (3.5-5.1); Sodium 141 meq/L (136-145)
[2018-05-17] MEDS ORDERED: Isosorbide Mononitrate 30 MG ER 24HR Tablet (Imdur) PO SCH (07:00)
[2018-05-17 07:11] LABS: Baso % (Auto) 0.4 % (0.0-2.0); Eos # (Auto) 0.2 th/mm3 (0.0-0.4); Eos % (Auto) 2.3 % (0.0-4.0); Hemoglobin 14.2 gm/dL (13.0-17.0); Lymph # (Auto) 1.7 th/mm3 (1.0-4.8); Lymph % (Auto) 21.5 % (9.0-44.0); Mean Corpuscular HGB Conc 33.9 % (32.0-36.0); Mean Corpuscular Hemoglobin 31.9 pg (27.0-34.0); Mean Corpuscular Volume 94.1 fL (80.0-100.0); Mean Platelet Volume 7.7 fL (7.0-11.0); Mono # (Auto) 0.9 th/mm3 (0.0-0.9); Mono % (Auto) 11.9 % (0.0-8.0); Neut # (Auto) 5.1 th/mm3 (1.8-7.7); Neut % (Auto) 63.9 % (16.0-70.0); Platelet Count 210 th/mm3 (150-450); Red Blood Count 4.47 mil/mm3 (4.50-5.90); Red Cell Distribution Width 13.4 % (11.6-17.2)
[2018-05-17] MEDS ORDERED: Lisinopril 10 MG Tablet PO SCH (09:00)
[2018-05-17] MEDS ORDERED: Pantoprazole Sodium 20 MG DR Tablet PO SCH (09:00)
[2018-05-17] MEDS ORDERED: Finasteride 5 MG Tablet PO SCH (09:00)
[2018-05-17] MEDS ORDERED: Aspirin 325 MG Tablet PO SCH (09:00)
--- NOTE | 2018-05-17 09:43 | P.PNCA ---
Subjective Interval history: no complaints doing well Physical Exam Vital signs: Vital Signs 05/16/18 09:43 05/16/18 09:48 05/16/18 12:37 Temperature Pulse Rate 60 53 L 56 L Respiratory Rate 18 18 18 Blood Pressure 202/81 H 202/81 H 167/77 H Pulse Oximetry 96 98 98 05/16/18 15:02 05/16/18 18:00 05/16/18 20:00 Temperature 98.1 F Pulse Rate 58 L 48 L 59 L Respiratory Rate 18 16 Blood Pressure 131/63 164/84 H Pulse Oximetry 96 05/16/18 21:36 05/16/18 22:36 05/16/18 23:00 Temperature 97.9 F 98.4 F Pulse Rate 59 L 64 54 L Respiratory Rate 16 16 Blood Pressure 149/80 H 170/84 H Pulse Oximetry 96 98 05/16/18 23:36 05/17/18 00:00 05/17/18 01:00 Temperature 98.2 F Pulse Rate 64 51 L 52 L Respiratory Rate 16 16 Blood Pressure Pulse Oximetry 98 97 05/17/18 02:00 05/17/18 04:00 05/17/18 05:49 Temperature 98.2 F Pulse Rate 54 L 67 56 L Respiratory Rate 16 Blood Pressure 169/81 H Pulse Oximetry 97 05/17/18 05:51 05/17/18 06:21 05/17/18 08:43 Temperature Pulse Rate 68 64 Respiratory Rate Blood Pressure Pulse Oximetry 94 L Intake & Output 05/16/18 05/17/18 05/17/18 18:59 06:59 18:59 Intake Total 1260 / 1260 640 / 640 Output Total 700 / 700 Balance 1260 / 1260 -60 / -60 Weight 78.018 kg 78 kg Intake: IV 10 / 10 Heparin/NS PF Inj 1,500 ML @ 0 10 / 10 mls/hr .ROUTE .[facility] Rx#: [id number] Oral 250 / 250 640 / 640 Anesthesia Amount 1000 / 1000 Output: Urine 700 / 700 Other: # Voids 2 - Constitutional no acute distress - Routine HEENT Exam Eye: Present: EOMI, PERRL ENT: Present: mucous membranes moist - Routine Neck Exam Absent: JVD - Routine Respiratory Exam Present: CTA bilaterally - Routine Cardiovascular Exam Present: RRR. Absent: murmur - Routine Abdominal Exam Present: soft, normoactive bowel sounds - Routine Extremities Exam Absent: edema Assessment and Plan - Plan unstable angina - PCI GRUPO RCA. asa plavix bb statin isosorbide FU with dr. raman ok for DC home today
--- NOTE | 2018-05-17 10:19 | P.DS ---
<Naima Sotelo W - Last Filed: 05/17/18 12:20> Date of admission: 05/16/18 14:05 Primary care physician: Omer Linn Attending physician on discharge: Kervin Mi Anticipated date of discharge: 05/17/18 Brief History from admission: Very pleasant 87-year-old gentleman with a known history of coronary artery disease presents with chest pressure. In 2010 he had an episode of chest pain that led to catheterization which demonstrated a high-grade lesion in the LAD which was successfully stented by Dr. Madhavi Dee. At that time he had additional documented disease in the circumflex and the right coronary artery but these have been followed and treated medically. He has been followed by Dr. Qureshi [facility] and has had both nuclear and exercise stress test but none within the last year or so. 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 He is otherwise remarkably healthy and states that his blood pressure has been in good control. About 3 weeks ago after a in the family he experienced an episode of chest pressure which was midsternal about about 3 out of 10 lasting less than 5 minutes and relieved by 3 aspirin. This morning he awoke at about 3 AM with similar discomfort which was again relieved by 3 aspirin. He contacted his primary care physician who directed him to the emergency room. He states that this discomfort was very similar in character to the discomfort he had prior to his stent but not quite as severe. This was highly suggestive of recurrent nocturnal unstable angina. DS: Diagnosis - Discharge Diagnosis (1) Unstable angina Status: Acute DS: Medications - Discharge Medications Prescriptions: clopidogrel [Plavix] 75 mg PO DAILY 30 Days #30 tab isosorbide mononitrate 30 mg PO DAILY@0700 30 Days tab DS: Summary Hospital Course: Patient presented to the chest pain center on 05/16/2018 was found to have unstable angina and sent to cardiac Cloth [facility] with Dr. Schmidt where patient had PCI with drug-eluting stent to the RCA on 05/16/2018. Patient doing well cleared for discharge home for cardiology will continue patient on aspirin add Plavix, beta-gabriela, statin and also add isosorbide. Patient to follow-up with Dr. 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 as well as PCP - Time Spent with Patient Total time spent providing and/or coordinating discharge services: Greater than 30 minutes Exam Vital signs: Vital Signs 05/16/18 12:37 05/16/18 15:02 05/16/18 18:00 Temperature Pulse Rate 56 L 58 L 48 L Respiratory Rate 18 18 Blood Pressure 167/77 H 131/63 Pulse Oximetry 98 05/16/18 20:00 05/16/18 21:36 05/16/18 22:36 Temperature 98.1 F 97.9 F 98.4 F Pulse Rate 59 L 59 L 64 Respiratory Rate 16 16 16 Blood Pressure 164/84 H 149/80 H 170/84 H Pulse Oximetry 96 96 98 05/16/18 23:00 05/16/18 23:36 05/17/18 00:00 Temperature 98.2 F Pulse Rate 54 L 64 51 L Respiratory Rate 16 16 Blood Pressure Pulse Oximetry 98 97 05/17/18 01:00 05/17/18 02:00 05/17/18 04:00 Temperature 98.2 F Pulse Rate 52 L 54 L 67 Respiratory Rate 16 Blood Pressure 169/81 H Pulse Oximetry 97 05/17/18 05:49 05/17/18 05:51 05/17/18 06:21 Temperature Pulse Rate 56 L 68 64 Respiratory Rate Blood Pressure Pulse Oximetry 05/17/18 08:43 Temperature Pulse Rate Respiratory Rate Blood Pressure Pulse Oximetry 94 L Intake & Output 05/16/18 05/17/18 05/17/18 18:59 06:59 18:59 Intake Total 1260 / 1260 640 / 640 Output Total 700 / 700 Balance 1260 / 1260 -60 / -60 Weight 78.018 kg 78 kg Intake: IV 10 / 10 Heparin/NS PF Inj 1,500 ML @ 0 10 / 10 mls/hr .ROUTE .[facility] Rx#: [id number] Oral 250 / 250 640 / 640 Anesthesia Amount 1000 / 1000 Output: Urine 700 / 700 Other: # Voids 2 Narrative: GENERAL: This is a well-nourished, well-developed patient, in no apparent distress. CARDIOVASCULAR: Regular rate and rhythm RESPIRATORY: Clear to auscultation. Breath sounds equal bilaterally. GASTROINTESTINAL: Abdomen soft, non-tender, nondistended. Normal active bowel sounds MUSCULOSKELETAL: Extremities without clubbing, cyanosis, or edema. NEURO: Alert & Oriented x4 to person, place, time, situation. Moves all ext x4 Results Procedures completed during hospitalization: PCI GRUPO RCA with Dr. Schmidt 05/16/18 Labs on day of discharge: Labs from last 24 hours 05/17/18 05/17/18 05/16/18 06:06 06:06 21:24 WBC 8.0 RBC 4.47 L Hgb 14.2 Hct 42.0 MCV 94.1 MCH 31.9 MCHC 33.9 RDW 13.4 Plt Count 210 MPV 7.7 Neut % (Auto) 63.9 Lymph % (Auto) 21.5 [place] % (Auto) 11.9 H Eos % (Auto) 2.3 Baso % (Auto) 0.4 Neut # (Auto) 5.1 Lymph # (Auto) 1.7 [place] # (Auto) 0.9 Eos # (Auto) 0.2 Baso # (Auto) 0.0 WBC Differential . Differential Comment Auto diff final PT INR APTT Sodium 141 Potassium 4.1 Chloride 106 Carbon Dioxide 25.8 Anion Gap 9 BUN 18 Creatinine 0.71 Estimated GFR Greater than 89 Random Glucose 90 Calcium 8.3 L Total Creatine Kinase 105 CK-MB (CK-2) Troponin I Less than 0.02 L 05/16/18 05/16/18 05/16/18 14:55 09:15 09:15 WBC RBC Hgb Hct MCV MCH MCHC RDW Plt Count MPV Neut % (Auto) Lymph % (Auto) [place] % (Auto) Eos % (Auto) Baso % (Auto) Neut # (Auto) Lymph # (Auto) [place] # (Auto) Eos # (Auto) Baso # (Auto) WBC Differential Differential Comment PT 10.5 INR 1.0 APTT 25.1 Sodium 142 Potassium 4.5 Chloride 106 Carbon Dioxide 32.1 H Anion Gap 4 L BUN 25 H Creatinine 0.88 Estimated GFR 82 L Random Glucose 68 L Calcium 8.8 Total Creatine Kinase 157 158 CK-MB (CK-2) 4.0 H Troponin I Less than 0.02 L Less than 0.02 L - Impressions ITS Impressions Chest X-Ray 05/16/18 09:44 CONCLUSION: Mild dilation of the ascending aorta similar to previous dated 12/29/2010. The lungs are clear. <Kervin Mi B - Last Filed: 05/20/18 12:58> Date of admission: 05/16/18 14:05 Primary care physician: Omer Linn DS: Summary Hospital Course: Patient examined. Assessment and plan formulated with Naima Sotelo PA-C. I agree with the above. - Time Spent with Patient Total time spent providing and/or coordinating discharge services: Results - Impressions ITS Impressions Chest X-Ray 05/16/18 09:44 CONCLUSION: Mild dilation of the ascending aorta similar to previous dated 12/29/2010. The lungs are clear. Discharge Plan - Discharge Order Discharge Orders: Discharge Order (Routine); Ordered 05/17/18 Ordered By: Naima Sotelo Cardiology Clear for Discharge (Routine); Ordered 05/17/18 Ordered By: Jose Schmidt - Discharge Details Anticipated Discharge Date: 05/17/18 - Physicians Team Primary Care Provider: Omer Linn Attending Provider: Kervin Mi Other Providers: Jose Schmidt MD
--- NOTE | 2018-05-17 15:05 | ECG ---
Date Performed: 05/16/2018 Time Performed: 15:00:32 PTAGE: 87 years EKG: SINUS BRADYCARDIA WITH SINUS ARRHYTHMIA LEFT ANTERIOR FASCICULAR BLOCK ABNORMAL ECG PREVIOUS TRACING : 05/16/2018 09.43 Since previous tracing, no significant change noted DOCTOR: Gatito Cain Interpretating Date/Time 05/17/2018 15:04:30
--- NOTE | 2018-05-17 15:06 | ECG ---
Date Performed: 05/16/2018 Time Performed: 09:43:23 PTAGE: 87 years EKG: SINUS BRADYCARDIA LEFT ANTERIOR FASCICULAR BLOCK ABNORMAL ECG PREVIOUS TRACING : 12/29/2010 19.42 Since previous tracing, no significant change noted DOCTOR: Gatito Cain Interpretating Date/Time 05/17/2018 15:05:42
--- NOTE | 2018-06-20 08:25 | ED ---
HPI General Chief Complaint: Chest Pain Stated Complaint: Medical Time Seen by Provider: 05/16/18 09:43 History of Present Illness HPI narrative: This is a 87-year-old male with history of coronary disease, hypertension, hyperlipidemia, GERD, who presents today with complaints of chest pain. Patient states that it started 3 weeks ago. He states that they had an unfortunate in her family and he experienced an episode of chest pain then. He reports that it was relieved with aspirin. He states that early this morning, he had another episode that started about 3 AM. It woke him from his sleep. It again was relieved with aspirin. The patient reported that it was a 3 out of 10 on the pain scale both times. He states that it is similar to the pain that he had when he had his stent placed. There was no diaphoresis, shortness of breath. Complete Quality Measures for STEMI Alert Patients Related Data Home Medications Medication Instructions Recorded Confirmed aspirin 81 mg PO DAILY 05/16/18 05/16/18 atorvastatin 20 mg PO DAILY 05/16/18 05/16/18 carvedilol 3.125 mg PO BID 05/16/18 05/16/18 cholecalciferol (vitamin D3) 2,000 unit PO DAILY 05/16/18 05/16/18 [Vitamin D3] dextran 70-hypromellose 1 drp OPHTHALMIC (EYE) BID PRN 05/16/18 05/16/18 [Artificial Tears (PF)] finasteride 5 mg PO DAILY 05/16/18 05/16/18 lisinopril 10 mg PO DAILY 05/16/18 05/16/18 omeprazole 20 mg PO DAILY 05/16/18 05/16/18 Allergies Allergy/AdvReac Type Severity Reaction Status Date / Time No Known Allergies Allergy Unverified 05/16/18 09:36 Review of Systems ROS: all other systems reviewed are negative Constitutional Reports system reviewed and no additional complaints, except as docu Eyes Reports system reviewed and no additional complaints, except as docu ENT Reports as per HPI Cardiovascular Reports chest pain (As per HPI), Denies diaphoresis and Denies dyspnea Respiratory Denies cough, Denies pain on inspiration and Denies dyspnea Gastrointestinal Denies abdominal pain, Denies dyspepsia, Denies nausea and Denies vomiting Genitourinary Reports system reviewed and no additional complaints, except as docu Musculoskeletal Reports system reviewed and no additional complaints, except as docu Neurologic Reports system reviewed and no additional complaints, except [facility] Medical History Medical History Rotator cuff impingement syndrome of right shoulder (Acute) Rotator cuff impingement syndrome of left shoulder (Acute) GERD (gastroesophageal reflux disease) (Acute) BPH (benign prostatic hyperplasia) (Acute) Hypercholesteremia (Acute) Hypertension (Acute) Surgical History Surgical History H/O heart artery stent (Acute) History of cardiac catheterization (Acute) History of appendectomy (Acute) H/O hernia repair (Acute) Social History Social History Substance History: No History of Abuse Second Hand Smoke Exposure: No Smoking Status: Former smoker Tobacco Type: Cigarettes How Often Do You Have a Drink Containing Alcohol: Never Recent Travel in [facility] within the Last 8 Weeks: No Recent Out of Country Travel within the Last 8 Weeks: No Immunization History Tetanus Immunization: Unsure Hx Influenza Vaccine This Season: Yes Exam Narrative Exam Narrative: GENERAL: GENERAL: Well-developed well-nourished male in no acute respiratory distress. SKIN: Focused skin assessment warm/dry. HEAD: Atraumatic. Normocephalic. EYES: No scleral icterus. No injection or drainage. ENT: No nasal bleeding or discharge. Mucous membranes pink and moist. NECK: Trachea midline. No JVD. Supple. I do not appreciate any carotid bruits. CARDIOVASCULAR: Regular rate and rhythm. No murmur appreciated. RESPIRATORY: No accessory muscle use. Clear to auscultation. Breath sounds equal bilaterally. GASTROINTESTINAL: Abdomen soft, non-tender, nondistended. Hepatic and splenic margins not palpable. MUSCULOSKELETAL: No obvious deformities. No clubbing. No cyanosis. No edema. NEUROLOGICAL: Awake and alert. No obvious cranial nerve deficits. Motor grossly within normal limits. Normal speech. PSYCHIATRIC: Appropriate mood and affect; insight and judgment normal. SKIN: Focused skin assessment warm/dry. HEAD: Atraumatic. Normocephalic. EYES: Pupils equal and round. No scleral icterus. No injection or drainage. ENT: No nasal bleeding or discharge. Mucous membranes pink and moist. NECK: Trachea midline. No JVD. CARDIOVASCULAR: Regular rate and rhythm. No murmur appreciated. RESPIRATORY: No accessory muscle use. Clear to auscultation. Breath sounds equal bilaterally. GASTROINTESTINAL: Abdomen soft, non-tender, nondistended. Hepatic and splenic margins not palpable. MUSCULOSKELETAL: No obvious deformities. No clubbing. No cyanosis. No edema. NEUROLOGICAL: Awake and alert. No obvious cranial nerve deficits. Motor grossly within normal limits. Normal speech. Course Initial Documented Vital Signs Temperature 97.7 F 05/16/18 09:33 Pulse Rate 56 L 05/16/18 09:33 Respiratory Rate 16 05/16/18 09:33 Blood Pressure 184/77 H 05/16/18 09:33 Pulse Oximetry 97 05/16/18 09:33 Last Documented Vital Signs Temperature 97.6 F 05/17/18 08:00 Pulse Rate 63 05/17/18 11:00 Respiratory Rate 18 05/17/18 08:00 Blood Pressure 170/92 H 05/17/18 08:00 Pulse Oximetry 94 L 05/17/18 08:43 Medical Decision Making MDM Narrative Medical decision making narrative: 87-year-old male with history of coronary artery disease, hypertension, hyperlipidemia, gastroesophageal reflux disease, presents today with an episode of chest pain that woke him up this morning at 3 AM. Patient states it was relieved with nitro. The patient does have a history of coronary artery disease and has had a stent placed. He sees Dr. Lenny Qureshi as his scleroscope tester at [facility]. 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 Patient's EKG and cardiac enzymes are within normal limits. Given his story and risk factors and age, patient will be admitted for rule out therapy in the chest pain center. He is amenable to this plan. Medical Screen Exam Complete: Yes Emergency Medical Condition: Yes Differential Diagnosis Differential Diagnosis: ACS versus GERD versus metabolic derangement versus musculoskeletal pain Lab Data Result diagrams: 05/17/18 06:06 05/17/18 06:06 Lab Results 05/16/18 05/16/18 05/16/18 Range/Units 09:15 09:15 09:15 WBC 6.5 (4.0-11.0) th/mm3 RBC 4.55 (4.50-5.90) mil/mm3 Hgb 14.4 (13.0-17.0) gm/dL Hct 43.2 (39.0-51.0) % MCV 95.1 (80.0-100.0) fL MCH 31.6 (27.0-34.0) pg MCHC 33.3 (32.0-36.0) % RDW 12.8 (11.6-17.2) % Plt Count 231 (150-450) th/mm3 MPV 7.5 (7.0-11.0) fL Neut % (Auto) 57.7 (16.0-70.0) % Lymph % (Auto) 23.6 (9.0-44.0) % [place] % (Auto) 14.6 H (0.0-8.0) % Eos % (Auto) 3.6 (0.0-4.0) % Baso % (Auto) 0.5 (0.0-2.0) % Neut # (Auto) 3.7 (1.8-7.7) th/mm3 Lymph # (Auto) 1.5 (1.0-4.8) th/mm3 [place] # (Auto) 0.9 (0.0-0.9) th/mm3 Eos # (Auto) 0.2 (0.0-0.4) th/mm3 Baso # (Auto) 0.0 (0.0-0.2) th/mm3 WBC Differential . Differential Comment Auto diff final PT 10.5 (9.8-11.6) sec INR 1.0 Ratio APTT 25.1 (24.3-30.1) sec Sodium 142 (136-145) meq/L Potassium 4.5 (3.5-5.1) meq/L Chloride 106 (98-107) meq/L Carbon Dioxide 32.1 H (21.0-32.0) meq/L Anion Gap 4 L (5-15) meq/L BUN 25 H (7-18) mg/dL Creatinine 0.88 (0.60-1.30) mg/dL Estimated GFR 82 L (>89) mL/min Random Glucose 68 L (74-106) mg/dL Calcium 8.8 (8.5-10.1) mg/dL Total Creatine Kinase 158 (39-308) U/L CK-MB (CK-2) 4.0 H (0.5-3.6) ng/mL Troponin I Less than 0.02 L (0.02-0.05) ng/mL 05/16/18 05/16/18 05/17/18 Range/Units 14:55 21:24 06:06 WBC 8.0 (4.0-11.0) th/mm3 RBC 4.47 L (4.50-5.90) mil/mm3 Hgb 14.2 (13.0-17.0) gm/dL Hct 42.0 (39.0-51.0) % MCV 94.1 (80.0-100.0) fL MCH 31.9 (27.0-34.0) pg MCHC 33.9 (32.0-36.0) % RDW 13.4 (11.6-17.2) % Plt Count 210 (150-450) th/mm3 MPV 7.7 (7.0-11.0) fL Neut % (Auto) 63.9 (16.0-70.0) % Lymph % (Auto) 21.5 (9.0-44.0) % [place] % (Auto) 11.9 H (0.0-8.0) % Eos % (Auto) 2.3 (0.0-4.0) % Baso % (Auto) 0.4 (0.0-2.0) % Neut # (Auto) 5.1 (1.8-7.7) th/mm3 Lymph # (Auto) 1.7 (1.0-4.8) th/mm3 [place] # (Auto) 0.9 (0.0-0.9) th/mm3 Eos # (Auto) 0.2 (0.0-0.4) th/mm3 Baso # (Auto) 0.0 (0.0-0.2) th/mm3 WBC Differential . Differential Comment Auto diff final PT (9.8-11.6) sec INR Ratio APTT (24.3-30.1) sec Sodium (136-145) meq/L Potassium (3.5-5.1) meq/L Chloride (98-107) meq/L Carbon Dioxide (21.0-32.0) meq/L Anion Gap (5-15) meq/L BUN (7-18) mg/dL Creatinine (0.60-1.30) mg/dL Estimated GFR (>89) mL/min Random Glucose (74-106) mg/dL Calcium (8.5-10.1) mg/dL Total Creatine Kinase 157 105 (39-308) U/L CK-MB (CK-2) (0.5-3.6) ng/mL Troponin I Less than 0.02 L Less than 0.02 L (0.02-0.05) ng/mL 05/17/18 Range/Units 06:06 WBC (4.0-11.0) th/mm3 RBC (4.50-5.90) mil/mm3 Hgb (13.0-17.0) gm/dL Hct (39.0-51.0) % MCV (80.0-100.0) fL MCH (27.0-34.0) pg MCHC (32.0-36.0) % RDW (11.6-17.2) % Plt Count (150-450) th/mm3 MPV (7.0-11.0) fL Neut % (Auto) (16.0-70.0) % Lymph % (Auto) (9.0-44.0) % [place] % (Auto) (0.0-8.0) % Eos % (Auto) (0.0-4.0) % Baso % (Auto) (0.0-2.0) % Neut # (Auto) (1.8-7.7) th/mm3 Lymph # (Auto) (1.0-4.8) th/mm3 [place] # (Auto) (0.0-0.9) th/mm3 Eos # (Auto) (0.0-0.4) th/mm3 Baso # (Auto) (0.0-0.2) th/mm3 WBC Differential Differential Comment PT (9.8-11.6) sec INR Ratio APTT (24.3-30.1) sec Sodium 141 (136-145) meq/L Potassium 4.1 (3.5-5.1) meq/L Chloride 106 (98-107) meq/L Carbon Dioxide 25.8 (21.0-32.0) meq/L Anion Gap 9 (5-15) meq/L BUN 18 (7-18) mg/dL Creatinine 0.71 (0.60-1.30) mg/dL Estimated GFR Greater than 89 (>89) mL/min Random Glucose 90 (74-106) mg/dL Calcium 8.3 L (8.5-10.1) mg/dL Total Creatine Kinase (39-308) U/L CK-MB (CK-2) (0.5-3.6) ng/mL Troponin I (0.02-0.05) ng/mL Imaging Data Radiologist's impression: Chest X-Ray 05/16/18 09:44 CONCLUSION: Mild dilation of the ascending aorta similar to previous dated 12/29/2010. The lungs are clear. Discharge Plan Discharge Disposition Patient Disposition: 01 Discharge Home Discharge Condition Condition: Stable Discharge Order Discharge Orders: Discharge Order (Routine); Ordered 05/17/18 Ordered By: Naima Sotelo Cardiology Clear for Discharge (Routine); Ordered 05/17/18 Ordered By: Jose Schmidt Discharge Details Anticipated Discharge Date: 05/17/18 Diagnosis: Chest pain at rest, Hypertension, Hypercholesteremia, GERD (gastroesophageal reflux disease) Physicians Team ED Provider: Dharmesh Camara Primary Care Provider: Omer Linn Attending Provider: Kervin Mi Other Providers: Jose Schmidt Discharge Interventions Interventions: ED Discharge Assessment Last Done: 05/16/18 15:33 Vital Signs Last Done: 05/16/18 12:37 Status ED Status: Left Department Discharge Information Discharge Date/Time: 05/16/18 15:37
== END 2018-05-17 13:17 | disposition home or self-care (01) ==
LOC: NEDA 09:31 → HCIS 09:31 → NEPE 09:31 → NEDA 15:37 → HCIS 17:10
PROVIDERS: ADMIT Hospitalist; ATTEND Hospitalist